=== PATIENT | male | born 1995 | race American Indian/Alaskan Native ===

== ENCOUNTER 2019-08-03 22:43 | Emergency (ER) | payer SELFPAY ==
[2019-08-04 00:12] LABS: Hematocrit 44.2 % (35.5-45.6); Hemoglobin 15.6 gm/dl (11.8-15.2); Mean Corpuscular HGB Conc 35 % (32-34); Mean Corpuscular Volume 85 fl (84-94); Platelet Count 217 K/mm3 (140-440); Red Blood Count 5.24 M/mm3 (3.65-5.03)
[2019-08-04 00:27] LABS: Alanine Aminotransferase 12 units/L (7-56); Albumin 5.4 g/dL (3.9-5); BUN/Creatinine Ratio 23; Blood Urea Nitrogen 18 mg/dL (9-20); Calcium 10.4 mg/dL (8.4-10.2); Hemolysis Index 15
--- NOTE | 2019-08-04 03:12 | Emergency Department Report ---
ED Abdominal Pain HPI - General Chief Complaint: Abdominal Pain Stated Complaint: ABD PAIN Time Seen by Provider: 08/04/19 03:08 Source: patient Mode of arrival: Ambulatory Limitations: No Limitations - History of Present Illness Initial Comments: Patient is a 23-year-old male presents emergency with complaints of right lower quadrant abdominal pain, nausea, vomiting, diarrhea. Going on for 2 days. Patient states that his abdominal pain is 10. Patient states with rest and worse with exertion and vomiting. Patient rates his nausea has subsided. Patient denies fever and chills. Patient denies headache. Denies chest pain. Patient denies shortness of breath. Patient denies blood in emesis or in his stool. MD Complaint: abdominal pain -: Sudden Location: RLQ Radiation: none Migration to: no migration Severity: severe Severity scale (0 -10): 9 Quality: stabbing Consistency: constant Improves With: rest Worsens With: vomiting, movement Associated Symptoms: nausea, vomiting, diarrhea, anorexia. denies: fever, chills, constipation, dysuria, hematemesis, hematochezia, melena, hematuria, syncope - Related Data Previous Rx's Medication Instructions Recorded Last Taken Type Ciprofloxacin HCl [Ciprofloxacin 500 mg PO Q12HR 10 Days #20 tab 08/04/19 Unknown Rx TAB] Ondansetron [Zofran Odt] 4 mg PO Q6HR PRN #15 tab.rapdis 08/04/19 Unknown Rx Allergies Allergy/AdvReac Type Severity Reaction Status Date / Time No Known Allergies Allergy Verified 08/03/19 22:58 ED Review of Systems ROS: Stated complaint: ABD PAIN Other details as noted in HPI Constitutional: denies: chills, fever Eyes: denies: eye pain, eye discharge, vision change ENT: denies: ear pain, throat pain Respiratory: denies: cough, shortness of breath, wheezing Cardiovascular: denies: chest pain, palpitations Endocrine: no symptoms reported Gastrointestinal: as per HPI, abdominal pain, nausea, vomiting, diarrhea Genitourinary: denies: urgency, dysuria Musculoskeletal: denies: back pain, joint swelling, arthralgia Skin: denies: rash, lesions Neurological: denies: headache, weakness, paresthesias Psychiatric: denies: anxiety, depression Hematological/Lymphatic: denies: easy bleeding, easy bruising ED Past Medical Hx - Past Medical History Previous Medical History?: No - Surgical History Past Surgical History?: No - Family History Family history: no significant - Social History Smoking Status: Never Smoker Substance Use Type: None - Medications Home Medications: Home Medications Medication Instructions Recorded Confirmed Last Taken Type Ciprofloxacin HCl [Ciprofloxacin 500 mg PO Q12HR 10 Days #20 tab 08/04/19 Unknown Rx TAB] Ondansetron [Zofran Odt] 4 mg PO Q6HR PRN #15 tab.rapdis 08/04/19 Unknown Rx ED Physical Exam - General Limitations: No Limitations General appearance: alert, in no apparent distress - Head Head exam: Present: atraumatic, normocephalic - Eye Eye exam: Present: normal appearance - ENT ENT exam: Present: mucous membranes moist - Neck Neck exam: Present: normal inspection - Respiratory Respiratory exam: Present: normal lung sounds bilaterally. Absent: respiratory distress, wheezes, rales - Cardiovascular Cardiovascular Exam: Present: regular rate, normal rhythm. Absent: systolic murmur, diastolic murmur, rubs, gallop - GI/Abdominal GI/Abdominal exam: Present: soft, tenderness, normal bowel sounds. Absent: distended - Rectal Rectal exam: Present: deferred - Extremities Exam Extremities exam: Present: normal inspection - Back Exam Back exam: Present: normal inspection - Neurological Exam Neurological exam: Present: alert, oriented X3 - Psychiatric Psychiatric exam: Present: normal affect, normal mood - Skin Skin exam: Present: warm, dry, intact, normal color. Absent: rash ED Course Vital Signs 08/03/19 08/04/19 08/04/19 22:59 02:50 05:10 Temperature 98.3 F 99.1 F Pulse Rate 73 81 85 Respiratory 18 18 18 Rate Blood Pressure 127/85 Blood Pressure 113/75 113/69 [Left] O2 Sat by Pulse 100 99 100 Oximetry - Reevaluation(s) Reevaluation #1: I discussed all findings with patient. Discussed all results with patient. I discussed the patient. Patient stable at discharge. Patient was discharged home. Patient given discharge instructions. Patient voiced understanding of discharge instructions. 08/04/19 04:55 ED Medical Decision Making - Lab Data Result diagrams: 08/03/19 23:49 08/03/19 23:49 - Radiology Data Radiology results: report reviewed CT ABDOMEN AND PELVIS WITH IV CONTRAST INDICATION: Pt complains of R.L.Q. abdominal pain. COMPARISON: None available. TECHNIQUE: All CT scans at this facility use dose modulation, automated exposure control, iterative reconstruction or weight based dosing, when appropriate, to reduce radiation dose to as low as reasonably achievable. FINDINGS: Lung Bases: No significant abnormality. Skeletal System: No acute abnormality. ABDOMEN: Liver: No significant abnormality. Gallbladder: No significant abnormality. Bile Ducts: No significant abnormality. Pancreas: No significant abnormality. Spleen: No significant abnormality. Adrenals: No significant abnormality. Right Kidney: No significant abnormality. Left Kidney: No significant abnormality. Upper GI tract: No significant abnormality. Lymph Nodes: No significant adenopathy. Aorta: No significant abnormality. Additional Findings: No significant abnormality. PELVIS: Colon: Fluid is noted in the colon. There is no colonic inflammation. Urinary Bladder and Distal Ureters: No significant abnormality. Appendix: No significant abnormality. Lymph Nodes: No significant adenopathy. Additional Findings: None. IMPRESSION: 1. Fluid in the colon can be seen in the setting of diarrheal illness such as enteritis. Correlate clinically. 2. The appendix is normal. - Medical Decision Making Patient is a 23-year-old male presents emergency with right lower quadrant pain. Patient has CT of the abdomen in the ER and it was negative for appendicitis but was positive for gastroenteritis. Patient given antibiotics and antiemetics upon discharge. Patient asymptomatic just prior to discharge. Patient denied pain just prior to discharge. Patient given Cipro. Patient given discharge instructions. Patient stable for discharge. Patient's labs unremarkable except for elevated WBC. - Differential Diagnosis , nausea, vomiting, diarrhea. Gastroenteritis, abdominal pain, Critical care attestation.: If time is entered above; I have spent that time in minutes in the direct care of this critically ill patient, excluding procedure time. ED Disposition Clinical Impression: RLQ abdominal pain, Gastroenteritis Nausea & vomiting Qualifiers: Vomiting type: unspecified Vomiting Intractability: non-intractable Qualified Code(s): R11.2 - Nausea with vomiting, unspecified Diarrhea Qualifiers: Diarrhea type: unspecified type Qualified Code(s): R19.7 - Diarrhea, unspecified Disposition: DC-01 TO HOME OR SELFCARE Is pt being admited?: No Does the pt Need Aspirin: No Condition: Stable Instructions: Traveler's Diarrhea (ED), Gastroenteritis (ED), Acute Nausea and Vomiting (ED), Acute Diarrhea (ED), Abdominal Pain (ED) Additional Instructions: Patient to follow up with primary care in 2-3 days. Patient to increase water. Patient to rest. Patient to eat a brat diet patient did take Tylenol when necessary for pain. Patient to rest. Patient increase water. Patient to take medicines as directed. Prescriptions: Ciprofloxacin HCl [Ciprofloxacin TAB] 500 mg PO Q12HR 10 Days #20 tab Ondansetron [Zofran Odt] 4 mg PO Q6HR PRN #15 tab.rapdis PRN Reason: Nausea And Vomiting Referrals: PRIMARY CARE, [Primary Care Provider] - 2-3 Days Time of Disposition: 04:56
[2019-08-04 03:30] LABS: Total Cells Counted 100
[2019-08-04 03:31] LABS: Basophils % (Manual) 0 % (0.0-1.8)
[2019-08-04 03:32] LABS: Stomatocytes Few
[2019-08-04 03:33] LABS: Platelet Estimate Consistent w Auto
--- NOTE | 2019-08-04 04:16 | Cat Scan Report ---
CT ABDOMEN AND PELVIS WITH IV CONTRAST INDICATION: Pt complains of R.L.Q. abdominal pain. COMPARISON: None available. TECHNIQUE: All CT scans at this facility use dose modulation, automated exposure control, iterative reconstructi on or weight based dosing, when appropriate, to reduce radiation dose to as low as reasonably achieva ble. FINDINGS: Lung Bases: No significant abnormality. Skeletal System: No acute abnormality. ABDOMEN: Liver: No significant abnormality. Gallbladder: No significant abnormality. Bile Ducts: No significant abnormality. Pancreas: No significant abnormality. Spleen: No significant abnormality. Adrenals: No significant abnormality. Right Kidney: No significant abnormality. Left Kidney: No significant abnormality. Upper GI tract: No significant abnormality. Lymph Nodes: No significant adenopathy. Aorta: No significant abnormality. Additional Findings: No significant abnormality. PELVIS: Colon: Fluid is noted in the colon. There is no colonic inflammation. Urinary Bladder and Distal Ureters: No significant abnormality. Appendix: No significant abnormality. Lymph Nodes: No significant adenopathy. Additional Findings: None. IMPRESSION: 1. Fluid in the colon can be seen in the setting of diarrheal illness such as enteritis. Correlate c linically. 2. The appendix is normal. Signer Name: Braulio Forte MD Signed: 08/04/2019 4:12 AM Workstation Name: [id number]
[2019-08-04 05:33] VITALS: BP 113/69
== END 2019-08-04 05:10 | disposition home or self-care (01) ==
LOC: ED 22:43
DX: K52.9 Noninfective gastroenteritis and colitis, unspecified (principal); Z79.899 Other long term (current) drug therapy
CPT/HCPCS: 36415; 74177; 80053; 85007; 85025; 99284; Q9967